=== PATIENT | female | born 1980 | race Caucasian/White ===

== ENCOUNTER 2017-09-21 20:01 | Emergency (ER) | payer OTHER ==
[2017-09-21 20:21] VITALS: BP 107/77
== END 2017-09-21 22:58 | disposition left against medical advice (07) ==
LOC: ED 20:01
DX: Z53.21 Procedure and treatment not carried out due to patient leaving prior to being seen by health care provider (principal)

== ENCOUNTER 2017-09-22 01:00 | Emergency (ER) | payer OTHER ==
[2017-09-22 06:59] VITALS: BP 122/65
== END 2017-09-22 06:55 | disposition home or self-care (01) ==
LOC: ED 01:00
DX: N83.209 Unspecified ovarian cyst, unspecified side (principal)

== ENCOUNTER 2017-10-16 20:08 | Emergency (ER) | payer OTHER ==
[~2017-10-16] VITALS: Ht 165.1 cm; Wt 64.0 kg
[2017-10-16 20:21] VITALS: Ht 165.1 cm; Wt 64.0 kg
[2017-10-16 22:02] VITALS: BP 103/66
== END 2017-10-16 22:02 | disposition home or self-care (01) ==
LOC: ED 20:08
DX: L03.116 Cellulitis of left lower limb (principal)
CPT/HCPCS: 90715

== ENCOUNTER 2019-08-31 22:45 | Emergency (ER) | payer OTHER ==
[~2019-08-31] VITALS: Ht 160 cm; Wt 60.3 kg
[2019-08-31 22:58] VITALS: Ht 160 cm; Wt 60.3 kg
[2019-08-31 23:58] LABS: BASOPHIL % 0.3 % (0-2); PLATELET COUNT 183 x10^3mcL (130-400); RED CELL DISTRIBUTION WIDTH 13.3 % (11.5-14.5)
[2019-09-01 00:15] LABS: ALKALINE PHOSPHATASE 60 U/L (46-116); ALT/SGPT 20 U/L (14-59); AST/SGOT 18 U/L (15-37); BILIRUBIN TOTAL 0.6 mg/dL (0.20-1.00); CALCIUM 8.6 mg/dL (8.5-10.1); CHLORIDE SERUM 105 mmol/L (98-107); GLUCOSE SERUM 98 mg/dL (74-106); SODIUM SERUM 143 mmol/L (136-145); TOTAL PROTEIN, SERUM 7.3 g/dL (6.4-8.2)
[2019-09-01 00:27] LABS: CREATININE SERUM 0.7 mg/dL (0.6-1.0); GFR1 > 60 mL/min
[2019-09-01 02:38] VITALS: BP 100/55
== END 2019-09-01 02:38 | disposition home or self-care (01) ==
LOC: ED 22:45
DX: R10.2 Pelvic and perineal pain (principal); N83.209 Unspecified ovarian cyst, unspecified side
CPT/HCPCS: 87491; 87591; J1885

== ENCOUNTER 2020-03-01 16:57 | Emergency (ER) | payer OTHER ==
[~2020-03-01] VITALS: Ht 162.6 cm; Wt 66.7 kg
[2020-03-01 17:06] VITALS: Ht 162.6 cm; Wt 66.7 kg
[2020-03-01 18:00] VITALS: BP 120/73
== END 2020-03-01 18:00 | disposition home or self-care (01) ==
LOC: ED 16:57
DX: S01.511A Laceration without foreign body of lip, initial encounter (principal); N83.209 Unspecified ovarian cyst, unspecified side; W22.8XXA Striking against or struck by other objects, initial encounter; Y93.89 Activity, other specified; Y92.89 Other specified places as the place of occurrence of the external cause; Y99.8 Other external cause status
CPT/HCPCS: 90715; J2001

== ENCOUNTER 2020-03-04 08:57 | Emergency (ER) | payer OTHER ==
[~2020-03-04] VITALS: Ht 162.6 cm; Wt 68.0 kg
[2020-03-04 09:06] VITALS: BP 104/65; Ht 162.6 cm; Wt 68.0 kg
== END 2020-03-04 09:30 | disposition home or self-care (01) ==
LOC: ED 08:57
DX: S01.511D Laceration without foreign body of lip, subsequent encounter (principal); X58.XXXD Exposure to other specified factors, subsequent encounter

== ENCOUNTER 2020-03-06 16:57 | Emergency (ER) | payer OTHER ==
[~2020-03-06] VITALS: Ht 162.6 cm; Wt 67.6 kg
[2020-03-06 17:16] VITALS: BP 110/69; Ht 162.6 cm; Wt 67.6 kg
== END 2020-03-06 17:40 | disposition home or self-care (01) ==
LOC: ED 16:57
DX: S01.511D Laceration without foreign body of lip, subsequent encounter (principal); X58.XXXD Exposure to other specified factors, subsequent encounter